=== PATIENT | female | born 1965 | race Caucasian/White ===

== ENCOUNTER → 2017-05-26 | Outpatient (CLI) | payer BC | LOC: M RAD 14:46 | DX: Z12.31 Encounter for screening mammogram for malignant neoplasm of breast (principal) | CPT/HCPCS: 77067 ==

== ENCOUNTER → 2017-05-27 | Outpatient (CLI) | payer BC | LOC: M RAD 11:11 | DX: R10.32 Left lower quadrant pain (principal) ==

== ENCOUNTER → 2020-02-16 | Outpatient (CLI) | payer OTHER ==
--- NOTE | 2020-02-16 11:45 | REPMRS ---
Patient History The patient states she had a clinical breast exam in 12/2019. Patient is nulliparous. No known family history of cancer. Taking hormonal contraceptives for 6 years 11 months. 3D TOMOSYNTHESIS WAS PERFORMED. The [facility] lifetime risk for breast cancer is 10.6%. Volpara breast density b. Digital Woman Screen Mammo: February 16, 2020 - Exam #: [id number] Bilateral CC and MLO view(s) were taken. Technologist: Lindsay Lopes, Technologist Prior study comparison: May 26, 2017, bilateral digital mammo screening bilat, performed at [facility]. March 26, 2016, bilateral digital mammo screening bilat, performed at [facility]. FINDINGS: There are scattered fibroglandular densities. There has been no change in the appearance of the mammogram from the prior studies. There is a mild amount of residual fibroglandular tissue which is fairly symmetric. There is no interval development of dominant mass, architectural distortion, or clustered microcalcification suggestive of malignancy. Assessment: BI-RADS/ACR category 1 mammogram. Negative Mammogram. Recommendation Routine screening mammogram in 1 year (for women over age 40). This mammogram was interpreted with the aid of an FDA-approved computer-aided dectection system. Electronically Signed By: Harlan Richards MD 02/16/20 [id number]
== END ==
LOC: M WHC 10:56
PROVIDERS: ATTEND Obstetrics & Gynecology
DX: Z12.31 Encounter for screening mammogram for malignant neoplasm of breast (principal); Z79.3 Long term (current) use of hormonal contraceptives

== ENCOUNTER → 2020-03-14 | Outpatient (CLI) | payer OTHER ==
--- NOTE | 2020-03-15 11:38 | PFTRPT ---
Visit Date: 03/14/2020 Referring Doctor: Xenia Fritz M.D. Height: 66.00 Inches Weight: 230.00 Lbs BSA: 2.12 Diagnosis: L94.0 Study is of excellent technical quality. Forced vital capacity is normal. FEV1 is in proportion. Obstructive index is therefore normal. Expiratory limit of the flow-volume loop is normal. Total lung capacity is mildly reduced. Residual volume is in proportion. Diffusing capacity is normal and remains normal when corrected for alveolar volume and hemoglobin is acceptable at 14.6. Airway resistance only minimally elevated with concomitant decrease in airway conductance. IMPRESSION: Probably normal study. Please correlate clinically. MTDD
== END ==
LOC: M CARPUL 11:07
PROVIDERS: ATTEND Internal Medicine Rheumatology
DX: L94.0 Localized scleroderma [morphea] (principal)

== ENCOUNTER → 2021-08-14 | Outpatient (CLI) | payer OTHER | LOC: M WHC 12:18 | PROVIDERS: ATTEND Obstetrics & Gynecology | DX: Z12.31 Encounter for screening mammogram for malignant neoplasm of breast (principal) ==

== ENCOUNTER → 2021-08-14 | Outpatient (CLI) | payer OTHER | LOC: M WHC 12:14 | PROVIDERS: ATTEND Family Medicine | DX: N83.9 Noninflammatory disorder of ovary, fallopian tube and broad ligament, unspecified (principal) ==

== ENCOUNTER → 2021-09-06 | Outpatient (CLI) | payer OTHER | LOC: M WHC 12:17 | PROVIDERS: ATTEND Obstetrics & Gynecology | DX: Z12.31 Encounter for screening mammogram for malignant neoplasm of breast (principal) | CPT/HCPCS: 76642; 77065; G0279 ==

== ENCOUNTER → 2021-09-06 | Outpatient (CLI) | payer OTHER | LOC: M WHC 12:20 | PROVIDERS: ATTEND Family Medicine | DX: D25.9 Leiomyoma of uterus, unspecified (principal) ==

== ENCOUNTER → 2022-01-02 | Outpatient (CLI) | payer OTHER ==
[~2022-01-02] MED LIST: AMLO2.5T3; [UNRECOGNIZED DRUG - CODE]
== END ==
LOC: M ONCR 12:32
PROVIDERS: ATTEND General Practice
DX: C50.412 Malignant neoplasm of upper-outer quadrant of left female breast (principal); Z79.3 Long term (current) use of hormonal contraceptives; Z79.899 Other long term (current) drug therapy; Z80.8 Family history of malignant neoplasm of other organs or systems; N80.9 Endometriosis, unspecified

== ENCOUNTER 2022-01-27 12:30 | Outpatient (RCR) | payer OTHER | END 2022-01-27 23:59 | disposition home or self-care (01) | LOC: M ONCR 12:30 | PROVIDERS: ATTEND General Practice | DX: C50.412 Malignant neoplasm of upper-outer quadrant of left female breast (principal) ==

== ENCOUNTER 2022-02-25 09:51 | Outpatient (RCR) | payer OTHER | END 2022-02-26 | LOC: M ONCR 09:51 | PROVIDERS: ATTEND General Practice | DX: C50.412 Malignant neoplasm of upper-outer quadrant of left female breast (principal) ==

== ENCOUNTER → 2022-06-25 | Outpatient (REF) | payer OTHER | LOC: M SFHCWAGY 17:25 | PROVIDERS: ATTEND Advanced Practice Midwife | DX: Z12.4 Encounter for screening for malignant neoplasm of cervix (principal) ==

== ENCOUNTER → 2022-08-26 | Outpatient (CLI) | payer OTHER | LOC: M ONCR 09:48 | PROVIDERS: ATTEND General Practice | DX: Z01.89 Encounter for other specified special examinations (principal) ==

== ENCOUNTER → 2022-09-04 | Outpatient (CLI) | payer OTHER | LOC: M ONCR 09:41 | PROVIDERS: ATTEND General Practice | DX: Z08 Encounter for follow-up examination after completed treatment for malignant neoplasm (principal); Z85.3 Personal history of malignant neoplasm of breast; N80.9 Endometriosis, unspecified; Z79.3 Long term (current) use of hormonal contraceptives; Z79.899 Other long term (current) drug therapy ==

== ENCOUNTER → 2023-03-11 | Outpatient (CLI) | payer OTHER | LOC: M ONCR 10:14 | PROVIDERS: ATTEND General Practice | DX: C50.412 Malignant neoplasm of upper-outer quadrant of left female breast (principal); Z71.2 Person consulting for explanation of examination or test findings; Z79.899 Other long term (current) drug therapy; Z92.3 Personal history of irradiation ==

== ENCOUNTER → 2023-06-09 | Outpatient (CLI) | payer OTHER ==
[2023-06-09 11:34] LABS: HEMATOCRIT 42.8 % (36.0-47.0); HEMOGLOBIN 14.2 g/dl (12.0-15.5); MEAN CORPUSCULAR HEMOGLOBIN 30.9 pg (27.0-33.0); MEAN CORPUSCULAR HGB CONC 33.2 g/dl (32.0-36.5); MEAN CORPUSCULAR VOLUME 93.2 fl (80.0-96.0); PLATELET COUNT, AUTOMATED 261 10^3/uL (150-450); RED BLOOD COUNT 4.59 10^6/uL (4.00-5.40); WHITE BLOOD COUNT 7.3 10^3/uL (4.0-10.0)
[2023-06-09 11:46] LABS: INR 1.03; PROTHROMBIN TIME 13.1 SECONDS (12.5-14.5)
[2023-06-09 11:51] LABS: HEMOGLOBIN A1c 5.3 % (4.0-6.0)
[2023-06-09 12:04] LABS: ALBUMIN 3.5 G/DL (3.2-5.2); ALKALINE PHOSPHATASE 65 U/L (46-116); ALT/SGPT 22 U/L (7.0-40); AST/SGOT 17 U/L (<34); BILIRUBIN,TOTAL 0.5 MG/DL (0.3-1.2); BLOOD UREA NITROGEN 16 MG/DL (9-23); CALCIUM LEVEL 8.7 MG/DL (8.5-10.1); CARBON DIOXIDE LEVEL 27 MMOL/L (20-31); CHLORIDE LEVEL 104 MMOL/L (98-107); CHOLESTEROL LEVEL 174 MG/DL (<200); CREATININE FOR GFR 0.89 MG/DL (0.55-1.30); GLOMERULAR FILTRATION RATE > 60.0 (>51); GLUCOSE, FASTING 92 MG/DL (60-100); LDL CHOLESTEROL 99.4 MG/DL (<100); POTASSIUM SERUM 4.8 MMOL/L (3.5-5.1); SODIUM LEVEL 136 MMOL/L (136-145); TOTAL PROTEIN 7.1 G/DL (5.7-8.2); TRIGLYCERIDES LEVEL 138 MG/DL (<150)
== END ==
LOC: M RAD 10:08
PROVIDERS: ATTEND Family Medicine
DX: Z01.818 Encounter for other preprocedural examination (principal); I10 Essential (primary) hypertension; R53.83 Other fatigue

== ENCOUNTER → 2023-07-13 | Outpatient (CLI) | payer OTHER ==
[~2023-07-13] MED LIST changes: +AMLO1TAB24 PO; +FAMO20TA PO; +[UNRECOGNIZED DRUG - CODE] PO
== END ==
LOC: M WHC 08:41
PROVIDERS: ATTEND Family Medicine
DX: Z12.31 Encounter for screening mammogram for malignant neoplasm of breast (principal); Z85.3 Personal history of malignant neoplasm of breast

== ENCOUNTER → 2023-09-01 | Outpatient (REF) | payer OTHER | LOC: M PLALAB 10:21 | PROVIDERS: ATTEND Advanced Practice Midwife | DX: N76.0 Acute vaginitis (principal); Z12.4 Encounter for screening for malignant neoplasm of cervix ==

== ENCOUNTER → 2023-09-23 | Outpatient (CLI) | payer OTHER | LOC: M CARPUL 11:32 | PROVIDERS: ATTEND Physician Assistant Medical | DX: M34.9 Systemic sclerosis, unspecified (principal) ==

== ENCOUNTER → 2024-03-09 | Outpatient (CLI) | payer OTHER ==
[~2024-03-09] MED LIST changes: +PHEN15CA6 PO
== END ==
LOC: M ONCR 10:04
PROVIDERS: ATTEND General Practice
DX: C50.412 Malignant neoplasm of upper-outer quadrant of left female breast (principal); Z98.890 Other specified postprocedural states; Z92.3 Personal history of irradiation; Z79.899 Other long term (current) drug therapy

== ENCOUNTER → 2024-03-29 | Outpatient (RCR) | payer OTHER | LOC: M ONCR 08:08 | PROVIDERS: ATTEND General Practice | DX: Z51.0 Encounter for antineoplastic radiation therapy (principal); C50.411 Malignant neoplasm of upper-outer quadrant of right female breast ==

== ENCOUNTER 2024-04-28 09:30 | Outpatient (RCR) | payer OTHER | END 2024-04-29 | LOC: M ONCR 09:30 | PROVIDERS: ATTEND General Practice | DX: Z51.0 Encounter for antineoplastic radiation therapy (principal) ==

== ENCOUNTER 2024-05-02 11:12 | Outpatient (RCR) | payer OTHER | END 2024-05-27 | LOC: M ONCR 11:12 | PROVIDERS: ATTEND General Practice | DX: Z51.0 Encounter for antineoplastic radiation therapy (principal); C50.411 Malignant neoplasm of upper-outer quadrant of right female breast ==

== ENCOUNTER → 2024-11-02 | Outpatient (CLI) | payer OTHER | LOC: M ONCR 13:08 | PROVIDERS: ATTEND General Practice | DX: C50.412 Malignant neoplasm of upper-outer quadrant of left female breast (principal); C50.411 Malignant neoplasm of upper-outer quadrant of right female breast; Z79.899 Other long term (current) drug therapy; Z98.890 Other specified postprocedural states; Z92.3 Personal history of irradiation ==

== ENCOUNTER 2025-02-09 06:16 | Day surgery (SDC) | payer OTHER ==
[~2025-02-09] VITALS: Ht 170.2 cm; Wt 90.3 kg
[2025-02-09] MEDS ORDERED: LR 1,000 ML IV SCH (06:30)
[2025-02-09] MEDS ORDERED: ONDANSETRON 4MG/2ML VIAL As Ordered ONE (07:24)
[2025-02-09] MEDS ORDERED: MIDAZOLAM INJ 2 MG/2 ML VIAL As Ordered ONE (07:24)
[2025-02-09] MEDS ORDERED: dexAMETHasone 4 MG/ML 1 ML VIAL As Ordered ONE (07:24)
[2025-02-09] MEDS ORDERED: LIDOCAINE 2% 100 MG/5 ML SDV (FOR ANES.) As Ordered ONE (07:24)
[2025-02-09] MEDS ORDERED: dexmedeTOMIDine (4 MCG/ML) 200 MCG/50 ML BTL As Ordered ONE (07:24)
[2025-02-09] MEDS: ceFAZolin SOD 2 GM IV ONCE IV ONE (08:05)
[2025-02-09] MEDS: HEPARIN SOD 5000 UNITS/ML 1 ML VIAL/SYRINGE SQ ONE (08:10)
[2025-02-09] MEDS ORDERED: ROCURONIUM BROMIDE 50MG/5ML VIAL As Ordered ONE (08:23)
[2025-02-09] MEDS ORDERED: ACETAMINOPHEN 1000MG/100ML IV BAG As Ordered ONE (08:36)
[2025-02-09] MEDS ORDERED: PHENYLephrine 500MCG 5ML (100MCG/ML) SYRINGE As Ordered ONE (08:39)
[2025-02-09] MEDS ORDERED: HYDROmorphone HCL 2 MG/ML 1 ML VIAL As Ordered ONE (09:04)
[2025-02-09] MEDS: GENTAMICIN SULF 80 MG/2 ML VIAL As Ordered ONE (09:05)
[2025-02-09] MEDS ORDERED: HYDROMORPHONE HCL 0.5 MG/0.5 ML SYRINGE IV PRN (10:20)
[2025-02-09] MEDS ORDERED: OXYC1TAB23 PO (10:26)
[2025-02-09] MEDS: ONDANSETRON 4MG/2ML VIAL IV PRN (11:02)
[2025-02-09 14:00] VITALS: BP 114/59; TEMP 96.7; O2SAT 97
== END 2025-02-09 14:05 | disposition home or self-care (01) ==
LOC: M SDC 06:16
PROVIDERS: ATTEND Plastic Surgery Surgery of the Hand
DX: N64.89 Other specified disorders of breast (principal); Z85.3 Personal history of malignant neoplasm of breast; Z92.3 Personal history of irradiation; Z79.899 Other long term (current) drug therapy
CPT/HCPCS: 19318; 88305; J0131; J0665; J0666; J0688; J1100; J1171; J1580; J2250; J2371; J2405; J2765; J3010

== ENCOUNTER → 2025-03-07 | Outpatient (CLI) | payer OTHER ==
[~2025-03-07] MED LIST changes: +OXYC1TAB23 PO
== END ==
LOC: M SOG 07:37
PROVIDERS: ATTEND Physician Assistant
DX: Z53.9 Procedure and treatment not carried out, unspecified reason (principal)